=== PATIENT | female | born 1990 | race Caucasian/White ===

== ENCOUNTER 2021-01-12 20:11 | Emergency (ER) | payer OTHER ==
[~2021-01-12] VITALS: Ht 154.9 cm; Wt 104.5 kg
--- NOTE | 2021-01-12 22:10 | PHYS DOC ---
Past Medical History Past Surgical History: (SHAENAHEED Meehan FOUNDRY OPERATOR) Smoking Status: Never Smoker Alcohol Use: Occasionally (EILEENNAHEED Ana Lilia STEWARD) General Adult EDM: Chief Complaint: FLU SYMPTOM HPI: HPI: Patient is a 30 year old female with no significant medical history presenting to the ED today complaining of fever, body aches, chills, cough and shortness of breath, symptoms began 3 days ago. Patient also reports loss of taste and smell. Denies any chest pain. Patient did not receive a Covid vaccine (NAHEED ARELLANO Ana Lilia FOUNDRY OPERATOR) Review of Systems: Review of Systems: Constitutional: Reports fever Eyes: Denies change in visual acuity. [] HENT: Reports nasal congestion, loss of taste and smell, denies sore throat. [] Respiratory: Reports cough and shortness of breath Cardiovascular: Denies chest pain or edema. [] GI: Denies abdominal pain, nausea, vomiting, bloody stools or diarrhea. [] : Denies dysuria. [] Musculoskeletal: Denies back pain or joint pain. [] Integument: Denies rash. [] Neurologic: Denies headache, focal weakness or sensory changes. [] Psychiatric: Denies depression or anxiety. [] (SHAENAHEED Meehan FOUNDRY OPERATOR) Heart Score: C/O Chest Pain: N/A Risk Factors: Risk Factors: DM, Current or recent (<one month) smoker, HTN, HLP, family history of CAD, obesity. Risk Scores: Score 0 - 3: 2.5% MACE over next 6 weeks - Discharge Home Score 4 - 6: 20.3% MACE over next 6 weeks - Admit for Clinical Observation Score 7 - 10: 72.7% MACE over next 6 weeks - Early Invasive Strategies (NAHEED ARELLANO FOUNDRY OPERATOR) Current Medications: Current Medications Medications (Trade) Dose Ordered Sig/Chester Start Time Stop Time Status Last Admin Dose Admin Acetaminophen (Tylenol) 1,000 mg 1X ONCE 01/12/21 22:15 01/12/21 22:16 UNV (EILEENNAHEED Ana Lilia FOUNDRY OPERATOR) Allergies: Allergies: Allergies Coded Allergies Type Severity Reaction Last Updated Verified No Known Drug Allergies 01/12/21 No (NAHEED ARELLANO FOUNDRY OPERATOR) Physical Exam: PE: Constitutional: Well developed, well nourished, no acute distress, non-toxic appearance. [] HENT: Normocephalic, atraumatic, bilateral external ears normal, oropharynx moist, no oral exudates, nose normal. [] Eyes: PERRLA, EOMI, conjunctiva normal, no discharge. [] Neck: Normal range of motion, no tenderness, supple, no stridor. [] Cardiovascular:Heart rate regular rhythm, no murmur [] Lungs & Thorax: Patient is actively coughing in the ED. Bilateral breath sounds clear to auscultation [] Abdomen: Bowel sounds normal, soft, no tenderness, no masses, no pulsatile masses. [] Skin: Warm, dry, no erythema, no rash. [] Back: No tenderness, no CVA tenderness. [] Extremities: No tenderness, no cyanosis, no clubbing, ROM intact, no edema. [] Neurologic: Alert and oriented X 3, normal motor function, normal sensory function, no focal deficits noted. [] Psychologic: Affect normal, judgement normal, mood normal. [] (NAHEED ARELLANO FOUNDRY OPERATOR) Current Patient Data: Vital Signs: Vital Signs Date Time Temp Pulse Resp B/P (MAP) Pulse Ox O2 Delivery O2 Flow Rate FiO2 01/12/21 20:52 101.8 129 20 140/92 (108) 100 Room Air 101.8 (NAHEED ARELLANO FOUNDRY OPERATOR) EKG: EKG: [] (NAHEED ARELLANO FOUNDRY OPERATOR) Radiology/Procedures: Radiology/Procedures: []PROCEDURE: CHEST AP ONLY Exam: Chest one view INDICATION: Fever, cough TECHNIQUE: Frontal view which Comparisons: None FINDINGS: The cardiomediastinal silhouette and pulmonary vessels are within normal limits. The lung and pleural spaces are clear. IMPRESSION: No acute cardiopulmonary process. Electronically signed by: Domenica Garrison MD (01/12/2021 10:36 PM) [facility] DICTATED and SIGNED BY: DOMENICA GARRISON MD DATE: 01/12/[id number] 0 (NAHEED ARELLANO FOUNDRY OPERATOR) Course & Med Decision Making: Course & Med Decision Making Pertinent Labs and Imaging studies reviewed. (See chart for details) This is a 30-year-old female patient presenting to the ED today with fever, cough, shortness of breath, body aches, chills, loss of taste and smell, symptoms for 3 days. Temperature in the ED is 101.8, heart rate in the 120s, O2 sats 100% on room ai r, patient was given Tylenol, heart rate coming down currently at 107 Chest x-ray interpreted by radiologist as negative for any acute findings. Negative influenza a and B. Negative rapid Covid test. Discharge to home. Quarantine measures recommended until the PCR Covid test is back. Tylenol/Motrin for fever. (NAHEED ARELLANO APRN) Dragon Disclaimer: Dragon Disclaimer: This electronic medical record was generated, in whole or in part, using a voice recognition dictation system. (NAHEED ARELLANO APRN) Departure Departure Impression: Primary Impression: Fever Qualified Codes: R50.9 - Fever, unspecified Additional Impressions: Cough Person under investigation for COVID-19 Disposition: HOME / SELF CARE / HOMELESS Condition: STABLE Referrals: NO PCP (PCP) Follow-up with your doctor in 1 to 2 weeks Patient Instructions: Cough, Adult, [id number], Fever, Adult Additional Instructions: You were evaluated in the emergency room, your chest x-ray is negative for any acute findings, your rapid Covid test is negative. Your rapid influenza A and B and negative. Your PCR Covid test is pending. Please quarantine yourself until results are back. Please rest, push fluids. Take Tylenol or Motrin for pain or fever. Maintain good hand hygiene. Wear your mask around other people. Follow-up with your doctor next week NAHEED ARELLANO APRN Jan 12, 2021 22:10 RANDELL CHARLES DO Jan 14, 2021 03:36
[2021-01-12] MEDS ORDERED: ACETAMINOPHEN 500 MG TABLET PO ONE (22:15)
[2021-01-12 22:25] LABS: INFLUENZA A PATIENT NEGATIVE (NEGATIVE); INFLUENZA B PATIENT NEGATIVE (NEGATIVE)
--- NOTE | 2021-01-12 22:39 | RAD ---
Exam: Chest one view INDICATION: Fever, cough TECHNIQUE: Frontal view which Comparisons: None FINDINGS: The cardiomediastinal silhouette and pulmonary vessels are within normal limits. The lung and pleural spaces are clear. IMPRESSION: No acute cardiopulmonary process. Electronically signed by: Domenica Ching MD (01/12/2021 10:36 PM) [facility]IO
[2021-01-12 23:12] VITALS: BP 116/64
--- NOTE | 2021-01-13 17:45 | NUR ---
IP: Attempted to contact pt concerning covid results. No answer, left a voicemail to return the call.
--- NOTE | 2021-01-16 10:31 | NUR ---
IP: Attempted a second time to contact pt concerning covid results. No anwser, left a second voicemail to return the call.
== END 2021-01-12 23:37 | disposition home or self-care (01) ==
LOC: ER 20:11
DX: R50.9 Fever, unspecified (principal); Z20.822 Contact with and (suspected) exposure to COVID-19; R05.9 Cough, unspecified; R06.02 Shortness of breath; M79.10 Myalgia, unspecified site
CPT/HCPCS: 71045; 87426; 87804; 99284; U0003; U0005

== ENCOUNTER 2021-04-27 07:57 | Emergency (ER) | payer OTHER ==
[~2021-04-27] VITALS: Ht 152.4 cm; Wt 100.0 kg
[2021-04-27] MEDS ORDERED: KETOROLAC 60 MG/2 ML VIAL. IM ONE (09:15)
--- NOTE | 2021-04-27 09:37 | RAD ---
EXAM: Left tibia and fibula, 2 views. HISTORY: Twisting injury. COMPARISON: None. FINDINGS: 2 views of the left tibia and fibula are obtained. There is no fracture, dislocation or sub luxation. There is no lytic or sclerotic osseous lesion. There is no periosteal reaction. There is a tiny plantar spur. IMPRESSION: No acute osseous finding. Electronically signed by: Daksha Aguirre MD (04/27/2021 9:35 AM) [id number]
--- NOTE | 2021-04-27 10:35 | PHYS DOC ---
Past Medical History Past Surgical History: Smoking Status: Never Smoker Additional Information: 2 minicigars in 1 week Alcohol Use: Occasionally General Adult EDM: Chief Complaint: MECHANICAL FALL HPI: HPI: Patient is a 31-year-old female that presents today with left knee pain after tripping this morning over a toy. Patient states this morning she was up around 2:30 in the morning walking around and tripped over a toy he felt a twisting sensation in her left knee area and now has pain along the patellar tendon area. Patient states she is able to ambulate but with great difficulty due to the pain. Review of Systems: Review of Systems: Constitutional: Denies fever or chills. [] Eyes: Denies change in visual acuity. [] HENT: Denies nasal congestion or sore throat. [] Respiratory: Denies cough or shortness of breath. [] Cardiovascular: Denies chest pain or edema. [] GI: Denies abdominal pain, nausea, vomiting, bloody stools or diarrhea. [] : Denies dysuria. [] Musculoskeletal: Denies back pain or joint pain. [] Integument: Denies rash. [] Neurologic: Denies headache, focal weakness or sensory changes. [] Endocrine: Denies polyuria or polydipsia. [] Lymphatic: Denies swollen glands. [] Psychiatric: Denies depression or anxiety. [] Heart Score: C/O Chest Pain: No Risk Factors: Risk Factors: DM, Current or recent (<one month) smoker, HTN, HLP, family history of CAD, obesity. Risk Scores: Score 0 - 3: 2.5% MACE over next 6 weeks - Discharge Home Score 4 - 6: 20.3% MACE over next 6 weeks - Admit for Clinical Observation Score 7 - 10: 72.7% MACE over next 6 weeks - Early Invasive Strategies Current Medications: Current Medications Medications (Trade) Dose Ordered Sig/Chester Start Time Stop Time Status Last Admin Dose Admin Ketorolac Tromethamine (Toradol Im) 60 mg 1X ONCE 04/27/21 09:15 04/27/21 09:25 DC 04/27/21 09:35 60 MG Allergies: Allergies: Allergies Coded Allergies Type Severity Reaction Last Updated Verified No Known Drug Allergies 04/27/21 No Physical Exam: PE: Constitutional: Well developed, well nourished, no acute distress, non-toxic appearance. [] HENT: Normocephalic, atraumatic, bilateral external ears normal, oropharynx moist, no oral exudates, nose normal. [] Eyes: PERRLA, EOMI, conjunctiva normal, no discharge. [] Neck: Normal range of motion, no tenderness, supple, no stridor. [] Cardiovascular:Heart rate regular rhythm, no murmur [] Lungs & Thorax: Bilateral breath sounds clear to auscultation [] Abdomen: Bowel sounds normal, soft, no tenderness, no masses, no pulsatile masses. [] Skin: Warm, dry, no erythema, no rash. [] Back: No tenderness, no CVA tenderness. [] Extremities: No tenderness, no cyanosis, no clubbing, ROM intact, no edema. [] Neurologic: Alert and oriented X 3, normal motor function, normal sensory function, no focal deficits noted. [] Psychologic: Affect normal, judgement normal, mood normal. [] Current Patient Data: Labs: Laboratory Tests Test 04/27/21 08:56 POC Urine HCG, Qualitative Hcg negative (Negative) Vital Signs: Vital Signs Date Time Temp Pulse Resp B/P (MAP) Pulse Ox O2 Delivery O2 Flow Rate FiO2 04/27/21 08:30 99.8 85 16 128/72 (90) 100 Room Air 99.8 EKG: EKG: [] Radiology/Procedures: Radiology/Procedures: REASON: twisted leg and fell PROCEDURE: TIBIA FIBULA LEFT EXAM: Left tibia and fibula, 2 views. HISTORY: Twisting injury. COMPARISON: None. FINDINGS: 2 views of the left tibia and fibula are obtained. There is no fracture, dislocation or subluxation. There is no lytic or sclerotic osseous lesion. There is no periosteal reaction. There is a tiny plantar spur. IMPRESSION: No acute osseous finding. Electronically signed by: Daksha Aguirre MD (04/27/2021 9:35 AM) [id number] [] Course & Med Decision Making: Course & Med Decision Making Pertinent Labs and Imaging studies reviewed. (See chart for details) 1025 review of radiological films shows no acute process at this time. Will place patient in Tyshawn wrap and provide crutches for this patient to be weightbearing as tolerated. I will also advise patient to follow-up with her primary care or with orthopedic physician for further management of this. Patient is to ice 20 minutes on 3-4 times daily, and to take [id number] Tylenol and/or ibuprofen as needed for pain. Miguel Disclaimer: Miguel Disclaimer: This electronic medical record was generated, in whole or in part, using a voice recognition dictation system. Departure Departure Impression: Primary Impression: Left knee pain Qualified Codes: M25.562 - Pain in left knee Disposition: HOME / SELF CARE / HOMELESS Condition: STABLE Referrals: GERSON MADRIGAL II, MD Patient Instructions: Knee Pain Additional Instructions: Ice and elevate 20 minutes on 3-4 times daily [id number] Tylenol and/or ibuprofen as needed for pain Tyshawn wrap as needed for comfort Crutches weight-bear as tolerated Follow-up with Dr. Madrigal in the next 5 to 7 days if your pain is not improved MARLIN GUILLERMO [employer]PORATE PLANNER Apr 27, 2021 10:35
[2021-04-27 10:43] VITALS: BP 114/73
== END 2021-04-27 11:02 | disposition home or self-care (01) ==
LOC: ER 07:57
DX: M25.562 Pain in left knee (principal); F17.210 Nicotine dependence, cigarettes, uncomplicated; G89.11 Acute pain due to trauma; W01.0XXA Fall on same level from slipping, tripping and stumbling without subsequent striking against object, initial encounter; Y93.89 Activity, other specified; Y92.89 Other specified places as the place of occurrence of the external cause; Y99.8 Other external cause status
CPT/HCPCS: 73590; 81025; 96372; 99283; J1885